=== PATIENT | male | born 2000 | race African-American/Black ===

== ENCOUNTER 2020-03-23 11:03 | Outpatient (CLI) | payer OTHER ==
--- NOTE | 2020-03-23 13:51 | RAD ---
LUMBAR SPINE SERIES 2 VIEWS: Date 03/23/2020 HISTORY: Low back pain. FINDINGS: There is scoliotic change convex to the left. Pedicle screws are seen in the thoracolumbar spine gail on. The upper extent is not definitely visualized on this exam. It extends at least from T11 to L3. D isc space height is well maintained. Pars defects are noted at the L4-5 level. IMPRESSION: 1. 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 2. Postop changes of the thoracolumbar spine and scoliosis. POS: GREG
== END 2020-03-23 11:04 | disposition home or self-care (01) ==
LOC: BICRAD 11:03
PROVIDERS: ATTEND Internal Medicine
DX: Z02.71 Encounter for disability determination (principal); M41.9 Scoliosis, unspecified; Z98.890 Other specified postprocedural states
CPT/HCPCS: 72100

== ENCOUNTER 2020-07-28 15:31 | Outpatient (CLI) | payer OTHER | END 2020-07-28 15:32 | disposition home or self-care (01) | LOC: BICMRI 15:31 | PROVIDERS: ATTEND Orthopaedic Surgery | DX: M24.411 Recurrent dislocation, right shoulder (principal); S42.291A Other displaced fracture of upper end of right humerus, initial encounter for closed fracture; S43.491A Other sprain of right shoulder joint, initial encounter; M25.411 Effusion, right shoulder ==